=== PATIENT | male | born 1930 | race Hispanic/Latino ===

== ENCOUNTER 2016-09-12 07:21 | Day surgery (SDC) | payer MEDICARE, BC ==
[2016-09-11 14:47] VITALS: BMI 31.8
[2016-09-12 08:03] LABS: ADD MANUAL DIFF? NO
[2016-09-12 08:09] LABS: BASO # 0.04 K/mm3 (0.0-2.0); BASO % 0.5 % (0.0-3.0); EOS # 0.2 (0.0-0.7); EOS % 2.4 % (1.5-5.0); GRAN # 5.16 (1.4-6.5); GRAN % 68.3 % (50.0-68.0); HEMATOCRIT 44.8 % (42.0-52.0); LYMPH # 1.7 (1.2-3.4); LYMPH % 22.1 % (22.0-35.0); MEAN CELL VOLUME 94.1 fL (80.0-105.0); MEAN CORPUSCULAR HEMOGLOBIN 33.4 pg (25.0-35.0); MEAN CORPUSCULAR HGB CONC 35.5 g/dl (31.0-37.0); MEAN PLATELET VOLUME 10.4 fl (7.0-11.0); MONO # 0.5 (0.1-0.6); MONO % 6.7 % (1.0-6.0); PLATELET COUNT 260 10^3/uL (120.0-450.0); WHITE BLOOD COUNT 7.6 10^3/ul (4.5-11.0)
[2016-09-12 08:17] LABS: INR 0.98 (0.93-1.08)
[2016-09-12 08:21] LABS: BLOOD UREA NITROGEN 15 mg/dL (7-21); CALCIUM 8.7 mg/dL (8.4-10.5); CARBON DIOXIDE 27 mmol/L (21-33); CHLORIDE 104 mmol/L (98-107); CHOLESTEROL 113 mg/dL (130-200); GFR AFRICAN-AMERICAN > 60; GLUCOSE,RANDOM 104 mg/dL (70-110); POTASSIUM 4.1 mmol/L (3.6-5.0); SODIUM 140 mmol/L (132-148)
[2016-09-12] MEDS ORDERED: Lidocaine 2% Inj (20ml) ONE (09:26)
[2016-09-12] MEDS ORDERED: Midazolam 2 MG/2 ML VIAL ONE (10:44)
[2016-09-12 11:59] VITALS: TEMP 97.7
[2016-09-12] MEDS ORDERED: Sodium Chloride 0.9% 1,000 ML IV SCH (12:30)
[2016-09-12 13:22] VITALS: RESP 20
[2016-09-12 13:54] VITALS: O2SAT 96
[2016-09-12 14:56] VITALS: BP 139/75; PULSE 61
--- NOTE | 2016-09-12 14:59 | CARDCATH ---
PROCEDURE DATE: 09/12/2016 HISTORY: The patient is an 85-year-old male who presents with deterioration of LV function on stress test. The patient has a history of PTCA and stent, as well as mild aortic stenosis. A cardiac catheterization was recommended. PROCEDURE: Left heart catheterization with coronary angiography and left ventriculogram, as well as a supra-aortic valvular injection. The right femoral artery was cannulated with a 6-St [place]ian sheath. There were no complications. The findings on catheterization reveal a 5-mm peak to peak gradient across the aortic valve. Left ventriculogram revealed an ejection fraction between 50%-55%. Supra-aortic valvular injection revealed no aortic insufficiency. The ascending aorta was dilated. His coronary anatomy revealed a right dominant circulation. The RCA was visualized and found to have diffuse intimal irregularities with a patent stent. There w as a 50% stenosis in the mid portion. The left main artery was unremarkable. The proximal LAD revealed a patent stent. In the mid portion of the LAD, there is an eccentric 50%-6 0% stenoses noted with BRENDEN 3 flow. The circumflex artery revealed a patent stent in its proximal portion with no critical lesions. Angio-Seal was used to close the femoral artery site. The patient tolerated the procedure well. SUMMARY: In summary, the procedure revealed: 1. Preserved LV function. 2. Aortic sclerosis without aortic valve stenosis. 3. No AI on supra-aortic valvular injection. 4. Dilated ascending aorta. 5. Patent stents in the RCA, circumflex, and LAD. 4. A 50% stenosis in the mid RCA, as well as a 50%-60% stenosis in the mid LAD. Given these findings, the patient's left ventricular function is preserved. The stents are patent. The patient needs to continue with cardiac risk reduction program. Gerardo De La Cruz MD cc: [id number] TT: 09/12/2016 14:58:36 jn
--- NOTE | 2016-09-12 15:28 | CARD ---
APPROVED REPORT EKG Measurement Heart [id number] <Conclusion> Sinus bradycardia with 1st degree AV block Left bundle branch block Abnormal ECG
== END 2016-09-12 18:10 | disposition home or self-care (01) ==
LOC: SDSVAS 07:21
PROVIDERS: ATTEND Internal Medicine Cardiovascular Disease
DX: I25.10 Atherosclerotic heart disease of native coronary artery without angina pectoris (principal); I70.0 Atherosclerosis of aorta; I77.819 Aortic ectasia, unspecified site; I10 Essential (primary) hypertension; Z95.5 Presence of coronary angioplasty implant and graft
CPT/HCPCS: 36415; 80048; 80061; 85025; 85610; 85730; 86850; 86900; 93005; 93458; 93567; 99152; 99153; C1760; C1769 ×3; C2629; J1644; J2250; J3010; J7040 ×2; Q9967

== ENCOUNTER 2016-10-24 00:49 | Observation (INO) | payer MEDICARE, BC ==
--- NOTE | 2016-10-24 01:06 | EDPD ---
HPI Stroke - General Time Seen by Provider: 10/24/16 00:53 Chief Complaint: Weakness/Neurological Deficit Historian: Patient - History of Present Illness Narrative History of Present Illness (Free Text): 10/24/16 01:05 Nabil Gerardo is an 85 year old male, whose past medical history includes hypertension, hyperlipidemia, arthritis, and [place] s/p PTCA with stents, who presents to the Emergency department complaining of left-sided arm weakness. Patient states he had a sharp left-sided headache for about 30 seconds while at home tonight and then began experiencing left sided facial numbness with left arm weakness and unsteady gait. Patient states symptoms improved on arrival to Emergency department. Patient reports he took Aspirin and Effient prior to arrival. Patient denies any fever, chills, chest pain, shortness of breath, nausea, vomiting, diarrhea, back pain, neck pain, or any other complaints. PMD: Dr. Terry Edmonds Electrical Systems Engineer: Dr. Zeeshan De La Cruz Date:: 10/24/16 Time: 01:05 Timing: Currently Symptomatic Context: Home Associated Symptoms: Headache, Numbness Exacerbated by: Nothing Relieved by: Nothing - Location Locate Left: Upper extremity rTPA Inclusion/Exclusion - Refusal of Treatment Patient Refused Treatment: No - Inclusion Criteria for Altepase Patient is 18 years or Older: Yes The Clinical Diagnosis of Ischemic Stroke That is Causing a Potentially Disabling Neurological Deficit: No Time of Onset is Well Established to be Less Than 270 Minute Before Treatment Would Begin: Yes Risk/Benefit Discussed With Patient/Family Member Present: Yes - Exclusion Criteria for Altepase Uncontrolled Hypertension at Time of Treatment (Systolic BP above 185 or Diastolic BP above 110 mmHg): No Active Internal Bleeding: No Known Bleeding Diathesis Including but Not Limited to: Platelets Below 100,000/ mm,PTT Above 40 sec After Heparin Use, Current Use of Oral Anitcoagulant With INR Greater Than 1.7 or PT Greater Than 15 secs: No Evidence of an Intracranial Hemorrhage: No Evidence of Major Acute Infarct With Signs Greater Than 1/3 MCA Territory: No Suspicion of Subarachnoid Hemorrhage on Pretreatment Evaluation Even if CT Head Negative For Hemorrhage: No - Warning to TPA With Conditions Following Conditions Weighed Against Anticipated Benefit: Yes Condition: Rapid Improvement Additional Condition (For 3-4.5 Hour Window): Age Greater Than 80 Past Medical History - Provider Review Nursing Documentation Reviewed: Yes - Cardiac Hx Pacemaker: No - Neurological Hx Paralysis: No - Hematological/Oncological Hx Blood Transfusions: No Hx Blood Transfusion Reaction: No - Musculoskeletal/Rheumatological Hx Musculoskeletal Disorders: Yes - Psychiatric Hx Emotional Abuse: No Hx Physical Abuse: No Hx Substance Use: No - Anesthesia Hx Anesthesia Reactions: No Hx Malignant Hyperthermia: No - Suicidal Assessment Feels Threatened In Home Enviroment: No Family/Social History - Family/Social History Family History: Non-Contributory - DrPapito Review Nursing documentation reviewed.: Yes Allergies/Home Meds Allergies/Adverse Reactions: Allergies No Known Allergies Allergy (Verified 09/11/16 14:47) Home Medications: Home Meds Medication Instructions Recorded Confirmed Rosuvastatin Calcium [Crestor] 10 mg PO QPM 07/16/13 10/24/16 [id number] CD [Cardizem CD] 180 mg PO QPM 07/16/13 10/24/16 Metoprolol Succinate 25 mg PO QAM 09/03/16 10/24/16 Aspirin [Low Dose Aspirin EC] 81 mg PO QAM 09/11/16 10/24/16 Whick-3 Fatty Acids [Fish Oil] 100 mg PO DAILY 09/11/16 10/24/16 Review of Systems - Physician Review All systems were reviewed & negative as marked: Yes - Review of Systems Constitutional: Normal. absent: Fevers Eyes: Normal ENT: Normal Respiratory: Normal. absent: SOB, Cough Cardiovascular: Normal. absent: Chest Pain Gastrointestinal: Normal. absent: Abdominal Pain, Diarrhea, Vomiting Genitourinary Male: Normal. absent: Dysuria, Frequency, Hematuria, Urinary Output Changes Musculoskeletal: Normal. absent: Back Pain, Neck Pain Skin: Normal. absent: Rash Neurological: Headache, Other (+left facial numbness, +left-sided arm weakness) Endocrine: Normal Hemo/Lymphatic: Normal Psychiatric: Normal ED Stroke Physical Exam Vital Signs Reviewed: Yes Temperature: Afebrile Blood Pressure: Normal Pulse: Regular Respiratory Rate: Normal Appearance: Positive for: Well-Appearing, Non-Toxic, Comfortable Pain Distress: None Mental Status: Positive for: Alert and Oriented X 3 - Systems Exam Head: Present: Atraumatic, Normocephalic Pupils: Present: PERRL Extroacular Muscles: Present: EOMI Conjunctiva: Present: Normal Ears: Present: Normal, NORMAL TM, Normal Canal. No: Erythema, TM Bulging, Fluid , TM Perf Mouth: Present: Moist Mucous Membranes Pharnyx: Present: Normal. No: ERYTHEMA, EXUDATE, TONSILS ENLARGED, Peritonsilar Swelling, Uvular Deviation, Muffled/Hoarse Voice, Strider, Soft Palate/Uvular Edema Nose (External): Present: Atraumatic Nose (Internal): Present: Normal Inspection Neck: Present: Normal Range of Motion. No: Meningeal Signs, MIDLINE TENDERNESS , Paraspinal Tenderness Respiratory/Chest: Present: Clear to Auscultation, Good Air Exchange. No: Respiratory Distress, Accessory Muscle Use Cardiovascular: Present: Regular Rate and Rhythm, Normal S1, S2. No: Murmurs Abdomen: Present: Normal Bowel Sounds. No: Tenderness, Distention, Peritoneal Signs Back: Present: Normal Inspection. No: CVA Tenderness, Midline Tenderness, Paraspinal Tenderness Upper Extremity: Present: Normal Inspection. No: Cyanosis, Edema Lower Extremity: Present: Normal Inspection. No: Edema Neurologic: Present: GCS=15, CN II-XII Intact, Speech Normal, Motor Func Grossly Intact, Normal Sensory Function, Normal Cerebellar Funct, Memory Normal. No: Pronator Drift, Facial Droop Skin: Present: Warm, Dry, Normal Color. No: Rashes Lymphatic: Present: OX3, NI, NC Psychiatric: Present: Alert, Oriented x 3, Normal Insight, Normal Concentration Medical Decision Making ED Course and Treatment: 10/24/16 01:05 Impression: 85 year old male complaining of left-sided headache, left-sided facial numbness , left arm weakness, and unsteady gait. Differential Diagnosis include but are not limited to: TIA vs. CVA Plan: -- CT Head w/o contrast -- EKG -- Chest X-ray -- Labs, troponin, lipid panel, blood type and screen -- Reassess and disposition Prior Visits: Notes and results from previous visits were reviewed. Progress Notes: Reviewed EKG, NSR at 68 bpm. 1st degree AV block. LBBB. 10/24/16 01:30 Reviewed radiology, Chest X-ray shows no active disease. CT Head shows: Mild chronic microvascular changes without acute intracranial finding. 10/24/16 02:[address] Jefry Woods, who is aware and agrees with plan. *Pt is not a candidate for tPA due to resolution of symptoms.* 10/24/16 02:59 Pt will go to Telemetry observation for TIA under Dr. Edmonds' service. 10/24/16 06:[address] Pressley, covering for Dr. Edmonds, who is aware and agrees with plan. anesthesia resident notified. - Lab Interpretations I have reviewed the lab results: Yes - RAD Interpretation Narrative RAD Interpretations (Text): Chest X-ray shows no active disease. CT Head shows: Scattered foci of low attenuation within the periventricular and subcortical white matter are most compatible with chronic microvascular disease. The ventricles and sulci are symmetric without midline shift or mass effect. There is no intracranial hemorrhage, extraaxial collection, or acute transcortical infarction. No lesion of the skull base or calvarium is identified. The visualized paranasal sinuses, mastoid air cells, and orbits are normal. IMPRESSION: Mild chronic microvascular changes without acute intracranial finding. Crab Fisher: ED Physician, Radiologist - EKG Interpretation Interpreted by ED Physician: Yes Type: 12 lead EKG - Scribe Statement The provider has reviewed the documentation as recorded by the Scribe Karen Owusu All medical record entries made by the Scribe were at my direction and personally dictated by me. I have reviewed the chart and agree that the record accurately reflects my personal performance of the history, physical exam, medical decision making, and the department course for this patient. I have also personally directed, reviewed, and agree with the discharge instructions and disposition. NIHSS Scale ([place]) Time Performed: 01:05 - How Severe is the Stoke Baseline Level of Consciousness: 0=Alert LOC to Questions: 0=Both comments correct LOC to commands: 0=Obeys both correctly Best Gaze: 0=Normal Visual: 0=No visual loss Facial: 0=Normal Motor Arm - Left: 0=No drift Motor Arm - Right: 0=No drift Motor Leg - Left: 0=No drift Motor Leg - Right: 0=No drift Limb Ataxia: 0=Absent Sensory: 0=Normal Best Language: 0=No aphasia Dysarthia: 0=Normal articulation Extinction & Inattention (Neglect): 0=Normal, no object Score: 0 Risk Level: No Stroke Risk Disposition/Present on Arrival - Present on Arrival Any Indicators Present on Arrival: No History of DVT/PE: No History of Uncontrolled Diabetes: No Urinary Catheter: No History of Decub. Ulcer: No History Surgical Site Infection Following: None - Disposition Have Diagnosis and Disposition been Completed?: Yes Diagnosis: Transient ischemic attack Disposition: HOSPITALIZED Disposition Time: 03:00 Patient Plan: Observation Patient Problems: Current Active Problems Problem Status Onset Transient ischemic attack Acute Condition: GOOD
[2016-10-24 01:21] VITALS: BMI 32.8
[2016-10-24 03:18] LABS: ADD MANUAL DIFF? NO
[2016-10-24 03:37] LABS: ALB/GLOB RATIO 1.4 (1.1-1.8); ALKALINE PHOSPHATASE 71 U/L (38-133); ALT/SGPT 33 U/L (7-56); AST/SGOT 23 U/L (15-59); BILIRUBIN,TOTAL 0.8 mg/dL (0.2-1.3); BLOOD UREA NITROGEN 14 mg/dL (7-21); CALCIUM 8.9 mg/dL (8.4-10.5); CARBON DIOXIDE 26 mmol/L (21-33); CHLORIDE 103 mmol/L (95-110); CHOLESTEROL 119 mg/dL (130-200); GFR AFRICAN-AMERICAN > 60; GLUCOSE,RANDOM 122 mg/dL (70-110); SODIUM 137 mmol/L (132-148); TOTAL PROTEIN 6.4 g/dL (5.8-8.3)
[2016-10-24 03:41] LABS: INR 0.94 (0.93-1.08); PARTIAL THROMBOPLASTIN TIME 30.1 Seconds (23.7-30.8)
[2016-10-24 03:43] LABS: TROPONIN I < 0.01 ng/mL
[2016-10-24 04:00] LABS: BASO # 0.03 K/mm3 (0.0-2.0); BASO % 0.4 % (0.0-3.0); EOS # 0.1 (0.0-0.7); EOS % 1.6 % (1.5-5.0); GRAN # 5.68 (1.4-6.5); GRAN % 73.9 % (50.0-68.0); HEMATOCRIT 43.7 % (42.0-52.0); LYMPH # 1.5 (1.2-3.4); LYMPH % 19.5 % (22.0-35.0); MEAN CELL VOLUME 93.4 fL (80.0-105.0); MEAN CORPUSCULAR HEMOGLOBIN 32.9 pg (25.0-35.0); MEAN CORPUSCULAR HGB CONC 35.2 g/dl (31.0-37.0); MEAN PLATELET VOLUME 10.4 fl (7.0-11.0); MONO # 0.4 (0.1-0.6); MONO % 4.6 % (1.0-6.0); PLATELET COUNT 244 10^3/uL (120.0-450.0); RED CELL DISTRIBUTION WIDTH 13.2 % (11.5-14.5); WHITE BLOOD COUNT 7.7 10^3/ul (4.5-11.0)
--- NOTE | 2016-10-24 07:07 | CP.PCM.HP ---
<Nancy Munoz - Last Filed: 10/24/16 22:52> History of Present Illness - History of Present Illness History of Present Illness: CC: I felt numb in the left side. Patient is an 85 y/o with PMH of htn, [place] s/p PTCA with 3 stents presenting with left facial droop and left upper extremities numbness and weakness. Patient states the symptom started last night while he was standing. Patient reports he decided to take 2 baby aspirins and his Lopressor, and few minutes later the symptoms resolved. Patient denies falling, or hitting his head. Patient denies cp, sob, n/v/d. Patient denies filling dizzy prior to the symptoms. States all day yesterday, he was fine prior to this. Patient had his stress test in August, and reports he was told it was normal. Patient's right sided eye with mild erythema, reports he has blocked lacrimal gland duct, and has been seeing human resources file clerk Dr Bills biweekly. PMH: As stated above PSH: cardiac stents, lap adis Social: former tobacco smoker, quit 40 years ago, denies alcohol and illicit drug use. Lives with , walks unassisted, retired [employer]. Present on Admission - Present on Admission Any Indicators Present on Admission: No History of DVT/PE: No History of Uncontrolled Diabetes: No Urinary Catheter: No Decubitus Ulcer Present: No Review of Systems - Constitutional Constitutional: As Per HPI - EENT Eyes: Discharge (left eye with discharge, muscle atrophy.) - Cardiovascular Cardiovascular: Pedal Edema. absent: Chest Pain, Chest Pain at Rest, Chest Pain with Activity, Claudication, Diaphoresis, Dyspnea, Irregular Heart Rhythm, Orthopnea, Palpitations, Paroxysmal Nocturnal Dyspnea, Syncope - Respiratory Respiratory: absent: Cough, Dyspnea, Dyspnea on Exertion, Chest Congestion - Gastrointestinal Gastrointestinal: absent: Abdominal Pain, Bloating, Constipation, Cramping, Diarrhea, Dysphagia, Nausea, Vomiting - Genitourinary Genitourinary: absent: Urinary Frequency, Urinary Hesitance, Urinary Urgency - Musculoskeletal Musculoskeletal: absent: Abnormal Gait, Back Pain, Limited Range of Motion, Myalgias, Numbness, Radiating Pain into Limb - Integumentary Integumentary: Dry Skin, Rash - Neurological Neurological: absent: Abnormal Gait, Abnormal Hearing, Abnormal Speech, Confusion, Dizziness, Numbness, Focal Weakness, Frequent Falls, Headaches, Lack of Coordination, Loss of Vision, Memory Loss, Radicular Pain, Restless Legs, Sensory Deficit, Syncope, Tingling, Tremor, Vertigo, Weakness, Other Visual Disturbances - Psychiatric Psychiatric: absent: Anxiety, Confusion, Depression, Hallucinations, Memory Loss - Endocrine Endocrine: absent: Fatigue, Palpitations Past Patient History - Tetanus Immunizations Tetanus Immunization: Unknown - Past Medical History & Family History Past Medical History?: Yes - Past Social History Smoking Status: Former Smoker Alcohol: None Drugs: Denies Home Situation {Lives}: With Family - CARDIAC Hx Pacemaker: No - NEUROLOGICAL Hx Paralysis: No - HEMATOLOGICAL/ONCOLOGICAL Hx Blood Transfusions: No Hx Blood Transfusion Reaction: No - MUSCULOSKELETAL/RHEUMATOLOGICAL Hx Musculoskeletal Disorders: Yes - PSYCHIATRIC Hx Emotional Abuse: No Hx Physical Abuse: No Hx Substance Use: No - SURGICAL HISTORY Hx Surgeries: Yes - ANESTHESIA Hx Anesthesia Reactions: No Hx Malignant Hyperthermia: No Meds Allergies/Adverse Reactions: Allergies Allergy/AdvReac Type Severity Reaction Status Date / Time No Known Allergies Allergy Verified 10/24/16 11:58 Physical Exam - Constitutional Appears: No Acute Distress - Head Exam Head Exam: ATRAUMATIC, NORMAL INSPECTION, NORMOCEPHALIC - Eye Exam Eye Exam: EOMI, PERRL. absent: Normal appearance (right eye with mild conjunctiva erythema, and discharge.), Scleral icterus Pupil Exam: NORMAL ACCOMODATION - ENT Exam ENT Exam: absent: Mucous Membranes Dry - Neck Exam Neck exam: Positive for: Normal Inspection - Respiratory Exam Respiratory Exam: Clear to Auscultation Bilateral, NORMAL BREATHING PATTERN. absent: Chest Wall Tenderness, Prolonged Expiratory Phase, Rales, Rhonchi, Wheezes, Respiratory Distress, Stridor - Cardiovascular Exam Cardiovascular Exam: Tachycardia, REGULAR RHYTHM, +S1, +S2. absent: Irregular Rhythm - GI/Abdominal Exam GI & Abdominal Exam: Normal Bowel Sounds, Soft. absent: Diminished Bowel Sounds , Distended, Firm, Guarding, Rebound, Rigid, Tenderness - Extremities Exam Extremities exam: Positive for: pedal edema (+2), pedal pulses present. Negative for: calf tenderness, tenderness - Back Exam Back exam: rash noted. absent: vertebral tenderness - Neurological Exam Neurological exam: Alert, CN II-XII Intact, Oriented x3, Reflexes Normal Additional comments: Negative babinski, + 2 patella reflexes b/l, no facial asymmetry, tongue midline , 5/5 ROM and motor strength in b/l upper and lower extremities. - Psychiatric Exam Psychiatric exam: Normal Affect, Normal Mood - Skin Skin Exam: Dry, Intact, Normal Color, Rash (multiple freckles. ), Warm Results - Vital Signs Recent Vital Signs: Last Vital Signs Temp 97.9 F 10/24/16 01:05 Pulse 61 10/24/16 06:38 Resp 15 10/24/16 06:38 BP 141/62 10/24/16 06:38 Pulse Ox 97 10/24/16 06:38 - Labs Result Diagrams: 10/24/16 03:12 10/24/16 03:12 Labs: Laboratory Results - last 24 hr 10/24/16 10/24/16 10/24/16 03:12 03:12 03:12 WBC 7.7 RBC 4.68 Hgb 15.4 Hct 43.7 MCV 93.4 MCH 32.9 MCHC 35.2 RDW 13.2 Plt Count 244 MPV 10.4 Gran % 73.9 H Lymph % (Auto) 19.5 L Davidson % (Auto) 4.6 Eos % (Auto) 1.6 Baso % (Auto) 0.4 Gran # 5.68 Lymph # 1.5 Davidson # 0.4 Eos # 0.1 Baso # 0.03 PT 10.2 INR 0.94 APTT 30.1 Sodium 137 Potassium 4.0 Chloride 103 Carbon Dioxide 26 Anion Gap 12 BUN 14 Creatinine 0.8 Est GFR ( Amer) > 60 Est GFR (Non-Af Amer) > 60 Random Glucose 122 H Calcium 8.9 Total Bilirubin 0.8 AST 23 ALT 33 Alkaline Phosphatase 71 Troponin I < 0.01 Total Protein 6.4 Albumin 3.8 Globulin 2.6 Albumin/Globulin Ratio 1.4 Triglycerides 106 Cholesterol 119 L LDL Cholesterol Direct 59 HDL Cholesterol 39 - EKG Data EKG Interpreted by: Myself (1st degree av block, LBBB, QTC prolongation) Assessment & Plan - Assessment and Plan (Free Text) Assessment: Patient is an 85 y/o with PMH of htn, [place] s/p PTCA with 3 stents presenting with left upper face and left upper extremities numbness and weakness, which resolved spontaneously. Plan: 1) Numbness and Tingling 2nd to TIA. - Less likely CVA due to sudden resolution of symptoms. - will obtain tsh, lipid, and hgba1c - will obtain carotid us and MRI of brain - CT head with no acute ischemic changes. - s/p asa and lipitor in the ed. - neuro and cardio consults 2) htn- will resume losartan and lopressor 3) CAD with stents- continue management as mentioned above. 4) DVT and gi prophylaxis- pepcid and heparin sc. Patient seen, examined, case discussed with Dr Edmonds. - Date & Time Date: 10/24/16 Time: 09:15 <Darian Pressley - Last Filed: 10/26/16 16:33> Results - Vital Signs Recent Vital Signs: Last Vital Signs Temp 98.2 F 10/25/16 06:00 Pulse 72 10/25/16 10:00 Resp 20 10/25/16 06:00 BP 140/65 10/25/16 09:31 Pulse Ox 97 10/25/16 06:00 - Labs Result Diagrams: 10/25/16 06:30 10/25/16 06:30 Attending/Attestation - Attestation I have personally seen and examined this patient.: Yes I have fully participated in the care of the patient.: Yes I have reviewed all pertinent clinical information: Yes Notes (Text): 10/26/16 16:33 Medical record note made by the resident after discussion with my direction and input after the patient was personally seen and examined by me. I have reviewed the chart and agree that the record accurately reflects by personal performance of the history, physical exam, data review, and medical decision-making, in the course for the patient. I have also personally directed the plan of care.
--- NOTE | 2016-10-24 07:15 | CT ---
PROCEDURE: CT HEAD WITHOUT CONTRAST. HISTORY: Code Stroke COMPARISON: None available. TECHNIQUE: Axial computed tomography images were obtained through the head/brain without intravenous contrast. Radiation dose: Total exam DLP = 789 mGy-cm. This CT exam was performed using one or more of the following dose reduction techniques: Automated exposure control, adjustment of the mA and/or kV according to patient size, and/or use of iterative reconstruction technique. FINDINGS: HEMORRHAGE: No intracranial hemorrhage. BRAIN: No mass effect or edema. Mild microvascular ischemic disease. VENTRICLES: Unremarkable. No hydrocephalus. CALVARIUM: Unremarkable. PARANASAL SINUSES: Unremarkable as visualized. No significant inflammatory changes. MASTOID AIR CELLS: Unremarkable as visualized. No inflammatory changes. OTHER FINDINGS: None. IMPRESSION: No intracranial hemorrhage.
--- NOTE | 2016-10-24 08:38 | RAD ---
HISTORY: cva COMPARISON: 10/13/2012 FINDINGS: LUNGS: The lungs are clear. PLEURA: No significant pleural effusion identified, no pneumothorax apparent. CARDIOVASCULAR: The heart is normal in size. Atherosclerotic aortic arch calcifications are present. . OSSEOUS STRUCTURES: No significant abnormalities. VISUALIZED UPPER ABDOMEN: Normal. OTHER FINDINGS: None. IMPRESSION: No active pulmonary disease.
[2016-10-24] MEDS ORDERED: Metoprolol Succinate 50 mg XL Tab PO SCH (10:00)
[2016-10-24] MEDS ORDERED: Pneumococcal 23-Valent Vaccine IM ONE (15:15)
--- NOTE | 2016-10-24 15:36 | MRI ---
PROCEDURE: MRI BRAIN WITHOUT CONTRAST HISTORY: TIA COMPARISON: Noncontrast head CT performed earlier the same day TECHNIQUE: Multiplanar, multisequence MR images of the brain were obtained without intravenous contrast enhancement. FINDINGS: HEMORRHAGE: None DWI: No evidence of an acute or early subacute infarction. BRAIN PARENCHYMA: There is no mass, mass effect or abnormal extra-axial fluid collection. There is no territorial infarction. The midline sagittal structures are normal. VENTRICLES: There is mild age-related global parenchymal volume loss and proportionate enlargement of the ventricles and cortical sulci. CRANIUM: There is normal bone marrow signal pattern. ORBITS: Grossly unremarkable. PARANASAL SINUSES/MASTOIDS: Predominantly clear. VASCULAR SYSTEM: There are normal signal voids in the larger intracranial arteries. OTHER FINDINGS: None. IMPRESSION: No acute intracranial abnormality. Specifically, no evidence of acute infarction. Mild age-related global parenchymal volume loss.
--- NOTE | 2016-10-24 16:22 | CARD ---
APPROVED REPORT EKG Measurement Heart [id number] <Conclusion> Sinus rhythm with 1st degree AV block Left bundle branch block Abnormal ECG
[2016-10-24] MEDS ORDERED: diltiaZEM 180 mg/24 Hours CD Cap PO SCH (18:00)
--- NOTE | 2016-10-24 18:58 | CON ---
DATE: 10/24/2016 HISTORY OF PRESENT ILLNESS: This is an 85-year-old white male with past medical history of hypertens ion, hyperlipidemia, arthritis, who came to the Emergency Room with left-sided weakness. The patient also had a left-sided headache for a few seconds and was experiencing left facial numbness and left arm weakness and unsteady gait. He came to the Emergency Room. MRI of the head was done, which was reported negative. Denies any fever, nausea or vomiting, chest pain, shortness of breath. Called to evaluate the patient. PAST MEDICAL HISTORY: As above. HOME MEDICATIONS: Crestor, diltiazem, metoprolol, aspirin. REVIEW OF SYSTEMS: A 10-point review of system was negative except as noted above. SOCIAL HISTORY: Does not smoke, does not drink. PHYSICAL EXAMINATION: HEENT: Normocephalic, atraumatic. NECK: Supple. NEUROLOGIC: Alert, awake, oriented x 3. No aphasia. Cranial nerves II through XII were tested. Pu pils reactive. EOM intact. Visual casanova full. No facial asymmetry. Tongue midline. Motor examin ation: Spontaneous movement of the extremities noted. Deep tendon reflexes 1+. Both plantars are d owngoing. Sensory appears intact. Cerebellar gait deferred. IMPRESSION: Possibly transient ischemic attack and MRI of the head was negative. PLAN: Continue present management. Workup in progress. We will follow up. Surinder Woods MD cc: [id number] TT: 10/24/2016 18:57:33 Confirmation # [id number] Dictation # [id number]
--- NOTE | 2016-10-24 19:39 | US ---
PROCEDURE: Bilateral carotid artery duplex ultrasound HISTORY: Carotid stenosis TIA PHYSICIAN(S): Gerardo Phan MD. TECHNIQUE: Duplex sonography and color-flow Doppler were used to evaluate the carotid bifurcations and limited segments of the vertebral arteries bilaterally. FINDINGS: There is mild smooth heterogeneous plaque noted at the carotid bifurcations bilaterally. The peak systolic velocity in the proximal right internal carotid artery is 78 cm/sec. This corresponds to a 20 to 39% proximal right ICA stenosis. Normal systolic velocities are noted in the proximal right external carotid artery. There is antegrade flow in the right vertebral artery. The peak systolic velocity in the proximal left internal carotid artery is 102 cm/sec. This corresponds to a 20 to 39% proximal left ICA stenosis. Normal systolic velocities are noted in the proximal left external carotid artery. There is blunted antegrade flow in the small left vertebral artery. IMPRESSION: 1. Bilateral 20-39% proximal ICA stenoses. 2. Antegrade flow in both vertebral arteries.
[2016-10-25 06:17] VITALS: RESP 20; TEMP 98.2; O2SAT 97
[2016-10-25] MEDS ORDERED: Pantoprazole 40 mg EC Tab PO SCH (06:30)
[2016-10-25 06:48] LABS: ADD MANUAL DIFF? NO
[2016-10-25 07:19] LABS: BASO # 0.04 K/mm3 (0.0-2.0); BASO % 0.5 % (0.0-3.0); EOS # 0.2 (0.0-0.7); EOS % 3.2 % (1.5-5.0); GRAN # 4.65 (1.4-6.5); HEMATOCRIT 45.5 % (42.0-52.0); LYMPH # 2.1 (1.2-3.4); LYMPH % 28.4 % (22.0-35.0); MEAN CORPUSCULAR HEMOGLOBIN 32.4 pg (25.0-35.0); MEAN CORPUSCULAR HGB CONC 34.5 g/dl (31.0-37.0); MEAN PLATELET VOLUME 10.8 fl (7.0-11.0); MONO # 0.4 (0.1-0.6); MONO % 4.9 % (1.0-6.0); PLATELET COUNT 276 10^3/uL (120.0-450.0); RED CELL DISTRIBUTION WIDTH 13.3 % (11.5-14.5); WHITE BLOOD COUNT 7.4 10^3/ul (4.5-11.0)
[2016-10-25 07:22] LABS: BLOOD UREA NITROGEN 13 mg/dL (7-21); CARBON DIOXIDE 25 mmol/L (21-33); CHLORIDE 105 mmol/L (98-107); GFR AFRICAN-AMERICAN > 60; GLUCOSE,RANDOM 102 mg/dL (70-110); POTASSIUM 3.9 mmol/L (3.6-5.0); SODIUM 140 mmol/L (132-148)
--- NOTE | 2016-10-25 08:12 | CP.PCM.DIS ---
<AlexanderNancy - Last Filed: 10/26/16 10:02> Provider - Provider Date of Admission: 10/24/16 02:59 Attending physician: Francisco Javier Edmonds MD Primary care physician: Francisco Javier Edmonds MD Consults: Neurology- Dr Jefry Woods. Cardio- Dr De La Cruz Time Spent in preparation of Discharge (in minutes): 45 Diagnosis - Discharge Diagnosis (1) Transient ischemic attack Status: Acute (2) H/O acute myocardial infarction Status: Chronic (3) H/O heart artery stent Status: Chronic (4) HTN (hypertension) Status: Chronic (5) Dyslipidemia Status: Chronic Hospital Course - Lab Results Lab Results: Most Recent Lab Values WBC 7.4 10^3/ul (4.5-11.0) 10/25/16 06:30 RBC 4.84 10^6/uL (3.5-6.1) 10/25/16 06:30 Hgb 15.7 gm/dL (14.0-18.0) 10/25/16 06:30 Hct 45.5 % (42.0-52.0) 10/25/16 06:30 MCV 94.0 fL (80.0-105.0) 10/25/16 06:30 MCH 32.4 pg (25.0-35.0) 10/25/16 06:30 MCHC 34.5 g/dl (31.0-37.0) 10/25/16 06:30 RDW 13.3 % (11.5-14.5) 10/25/16 06:30 Plt Count 276 10^3/uL (120.0-450.0) 10/25/16 06:30 MPV 10.8 fl (7.0-11.0) 10/25/16 06:30 Gran % 63.0 % (50.0-68.0) 10/25/16 06:30 Lymph % (Auto) 28.4 % (22.0-35.0) 10/25/16 06:30 [place] % (Auto) 4.9 % (1.0-6.0) 10/25/16 06:30 Eos % (Auto) 3.2 % (1.5-5.0) 10/25/16 06:30 Baso % (Auto) 0.5 % (0.0-3.0) 10/25/16 06:30 Gran # 4.65 (1.4-6.5) 10/25/16 06:30 Lymph # 2.1 (1.2-3.4) 10/25/16 06:30 [place] # 0.4 (0.1-0.6) 10/25/16 06:30 Eos # 0.2 (0.0-0.7) 10/25/16 06:30 Baso # 0.04 K/mm3 (0.0-2.0) 10/25/16 06:30 PT 10.2 Seconds (9.9-11.8) 10/24/16 03:12 INR 0.94 (0.93-1.08) 10/24/16 03:12 APTT 30.1 Seconds (23.7-30.8) 10/24/16 03:12 Sodium 140 mmol/L (132-148) 10/25/16 06:30 Potassium 3.9 mmol/L (3.6-5.0) 10/25/16 06:30 Chloride 105 mmol/L (98-107) 10/25/16 06:30 Carbon Dioxide 25 mmol/L (21-33) 10/25/16 06:30 Anion Gap 14 (10-20) 10/25/16 06:30 BUN 13 mg/dL (7-21) 10/25/16 06:30 Creatinine 0.7 mg/dL (0.5-1.4) 10/25/16 06:30 Est GFR ( Amer) > 60 10/25/16 06:30 Est GFR (Non-Af Amer) > 60 10/25/16 06:30 POC Glucose (mg/dL) 133 mg/dL (65-110) H 10/24/16 01:43 Random Glucose 102 mg/dL (70-110) 10/25/16 06:30 Hemoglobin A1c 5.7 % (4.2-6.5) 10/24/16 03:12 Calcium 9.0 mg/dL (8.4-10.5) 10/25/16 06:30 Total Bilirubin 0.8 mg/dL (0.2-1.3) 10/24/16 03:12 AST 23 U/L (15-59) 10/24/16 03:12 ALT 33 U/L (7-56) 10/24/16 03:12 Alkaline Phosphatase 71 U/L (38-133) 10/24/16 03:12 Troponin I < 0.01 ng/mL 10/24/16 03:12 Total Protein 6.4 g/dL (5.8-8.3) 10/24/16 03:12 Albumin 3.8 g/dL (3.0-4.8) 10/24/16 03:12 Globulin 2.6 gm/dL 10/24/16 03:12 Albumin/Globulin Ratio 1.4 (1.1-1.8) 10/24/16 03:12 Triglycerides 106 mg/dL (35-160) 10/24/16 03:12 Cholesterol 119 mg/dL (130-200) L 10/24/16 03:12 LDL Cholesterol Direct 59 mg/dL (0-129) 10/24/16 03:12 HDL Cholesterol 39 mg/dL (29-60) 10/24/16 03:12 Blood Type O POSITIVE 10/24/16 01:06 Antibody Screen Negative 10/24/16 01:06 BBK History Checked Patient has bt 10/24/16 01:06 - Hospital Course Hospital Course: Patient is an 85 y/o with PMH of htn, [place] s/p PTCA with 3 stents presenting with left upper face and left upper extremities numbness and weakness, which resolved spontaneously before arrival. Patient had taking 81 mg aspirin 2 tabs prior to presenting tot he ED. On the arrival, CT head revealed no acute ischemic changes. Basic labs were normal, including hgba1c. Patient had MRI of the brain which revealed no acute infarct, mild age related global parenchymal volume loss. EKG revealed LBBB, Sinus rhythm with 1st degree av block, LBBB ( chronic), and qtc prolongation. No arrhythmias on tele. Carotid u/s revealed 20 -39% proximal stenoses. Patient was evaluated by cardio, and agreed to restarting patient plavix. Patient to be discharged home with aspirin 81 mg and plavix 75 mg daily. - Date & Time of H&P Date of H&P: 10/24/16 Time of H&P: 07:06 Discharge Exam - Head Exam Head Exam: ATRAUMATIC, NORMAL INSPECTION, NORMOCEPHALIC - Eye Exam Eye Exam: EOMI, Normal appearance, PERRL. absent: Scleral icterus - ENT Exam ENT Exam: Mucous Membranes Moist - Neck Exam Neck exam: Normal Inspection - Respiratory Exam Respiratory Exam: Clear to PA & Lateral, NORMAL BREATHING PATTERN, UNREMARKABLE. absent: Rales, Rhonchi, Wheezes, Respiratory Distress, Stridor - Cardiovascular Exam Cardiovascular Exam: REGULAR RHYTHM, RRR, +S1, +S2. absent: Systolic Murmur - GI/Abdominal Exam GI & Abdominal Exam: Normal Bowel Sounds, Unremarkable. absent: Distended, Firm , Guarding, Mass, Organomegaly, Pulsatile Mass, Rebound, Rigid, Soft, Tenderness - Extremities Exam Extremities exam: pedal edema (+2) - Back Exam Back exam: NORMAL INSPECTION - Neurological Exam Neurological exam: Alert, CN II-XII Intact, Normal Gait, Oriented x3, Reflexes Normal - Psychiatric Exam Psychiatric exam: Normal Affect, Normal Mood - Skin Skin Exam: Dry, Intact, Normal Color, Rash, Warm Discharge Plan - Discharge Medications Prescriptions: Clopidogrel [Plavix] 75 mg PO DAILY #30 tab - Follow Up Plan Condition: GOOD Disposition: HOME/ ROUTINE Patient education suggested?: Yes Instructions: Transient Ischemic Attack (DC), Ischemic Stroke (DC), Stroke (DC) Additional Instructions: Please take both aspirin and plavix once a day. Follow up with Dr Edmonds in the office Follow up with Dr De La Cruz as scheduled. Go tot he neared emergency room if you experience headache ( worst headache of your life), dizziness, fall, numbness and weakness, chest pain or shortness of breath. Referrals: Francisco Javier Edmonds MD [Primary Care Provider] - Gerardo De La Cruz MD [Staff Provider] - <Francisco Javier Edmonds - Last Filed: 11/20/16 08:32> Provider - Provider Date of Admission: 10/24/16 02:59 Attending physician: Francisco Javier Edmonds MD Primary care physician: Francisco Javier Edmonds MD Hospital Course - Lab Results Lab Results: Most Recent Lab Values WBC 7.4 10^3/ul (4.5-11.0) 10/25/16 06:30 RBC 4.84 10^6/uL (3.5-6.1) 10/25/16 06:30 Hgb 15.7 gm/dL (14.0-18.0) 10/25/16 06:30 Hct 45.5 % (42.0-52.0) 10/25/16 06:30 MCV 94.0 fL (80.0-105.0) 10/25/16 06:30 MCH 32.4 pg (25.0-35.0) 10/25/16 06:30 MCHC 34.5 g/dl (31.0-37.0) 10/25/16 06:30 RDW 13.3 % (11.5-14.5) 10/25/16 06:30 Plt Count 276 10^3/uL (120.0-450.0) 10/25/16 06:30 MPV 10.8 fl (7.0-11.0) 10/25/16 06:30 Gran % 63.0 % (50.0-68.0) 10/25/16 06:30 Lymph % (Auto) 28.4 % (22.0-35.0) 10/25/16 06:30 [place] % (Auto) 4.9 % (1.0-6.0) 10/25/16 06:30 Eos % (Auto) 3.2 % (1.5-5.0) 10/25/16 06:30 Baso % (Auto) 0.5 % (0.0-3.0) 10/25/16 06:30 Gran # 4.65 (1.4-6.5) 10/25/16 06:30 Lymph # 2.1 (1.2-3.4) 10/25/16 06:30 [place] # 0.4 (0.1-0.6) 10/25/16 06:30 Eos # 0.2 (0.0-0.7) 10/25/16 06:30 Baso # 0.04 K/mm3 (0.0-2.0) 10/25/16 06:30 PT 10.2 Seconds (9.9-11.8) 10/24/16 03:12 INR 0.94 (0.93-1.08) 10/24/16 03:12 APTT 30.1 Seconds (23.7-30.8) 10/24/16 03:12 Sodium 140 mmol/L (132-148) 10/25/16 06:30 Potassium 3.9 mmol/L (3.6-5.0) 10/25/16 06:30 Chloride 105 mmol/L (98-107) 10/25/16 06:30 Carbon Dioxide 25 mmol/L (21-33) 10/25/16 06:30 Anion Gap 14 (10-20) 10/25/16 06:30 BUN 13 mg/dL (7-21) 10/25/16 06:30 Creatinine 0.7 mg/dL (0.5-1.4) 10/25/16 06:30 Est GFR ( Amer) > 60 10/25/16 06:30 Est GFR (Non-Af Amer) > 60 10/25/16 06:30 POC Glucose (mg/dL) 133 mg/dL (65-110) H 10/24/16 01:43 Random Glucose 102 mg/dL (70-110) 10/25/16 06:30 Hemoglobin A1c 5.7 % (4.2-6.5) 10/24/16 03:12 Calcium 9.0 mg/dL (8.4-10.5) 10/25/16 06:30 Total Bilirubin 0.8 mg/dL (0.2-1.3) 10/24/16 03:12 AST 23 U/L (15-59) 10/24/16 03:12 ALT 33 U/L (7-56) 10/24/16 03:12 Alkaline Phosphatase 71 U/L (38-133) 10/24/16 03:12 Troponin I < 0.01 ng/mL 10/24/16 03:12 Total Protein 6.4 g/dL (5.8-8.3) 10/24/16 03:12 Albumin 3.8 g/dL (3.0-4.8) 10/24/16 03:12 Globulin 2.6 gm/dL 10/24/16 03:12 Albumin/Globulin Ratio 1.4 (1.1-1.8) 10/24/16 03:12 Triglycerides 106 mg/dL (35-160) 10/24/16 03:12 Cholesterol 119 mg/dL (130-200) L 10/24/16 03:12 LDL Cholesterol Direct 59 mg/dL (0-129) 10/24/16 03:12 HDL Cholesterol 39 mg/dL (29-60) 10/24/16 03:12 Blood Type O POSITIVE 10/24/16 01:06 Antibody Screen Negative 10/24/16 01:06 BBK History Checked Patient has bt 10/24/16 01:06 Attending/Attestation - Attestation I have personally seen and examined this patient.: Yes I have fully participated in the care of the patient.: Yes I have reviewed all pertinent clinical information, including history, physical exam and plan: Yes Notes (Text): 11/20/16 08:32 Medical record note made by resident after discussion with my direction and input after patient personally seen and examined by me. I have reviewed the chart and agree that the record accurately reflects my personal history, physical, data review and plan.
[2016-10-25 09:34] VITALS: BP 140/65
[2016-10-25] MEDS ORDERED: Metoprolol Succinate 50 mg XL Tab PO SCH (10:00)
[2016-10-25 11:09] VITALS: PULSE 72
--- NOTE | 2016-10-25 11:13 | CON ---
DATE: 10/25/2016 HISTORY OF PRESENT ILLNESS: The patient is an 85-year-old male who presents with transient facial we akness. PAST MEDICAL HISTORY: Notable for history of hypertension, coronary artery disease, status post PTCA and stent in the past. In addition, he suffers from hyperlipidemia. He denies chest pain, denies shortness of breath. His symptoms are completely resolved. The patient feels well. SOCIAL HISTORY: Does not smoke. He exercises 3 times a week. REVIEW OF SYSTEMS: A 14-point review of systems was reviewed in detail. No cardiac symptomatology i s noted. PHYSICAL EXAMINATION: VITAL SIGNS: Blood pressure is 140/65, heart rate in the 80s. NECK: Negative JVD. LUNGS: Without rales. HEART: Revealed S1, S2. EXTREMITIES: Without edema. LABORATORIES: Includes an EKG that shows normal sinus rhythm with a left bundle branch block. Hemoglobin is 15.7. Chemistries: The BUN and creatinine are unremarkable. Troponin is negative x 1 . IMPRESSION: 1. Probable transient ischemic attack. 2. No evidence for acute coronary syndrome. 3. Stable angina. 4. Coronary artery disease. 5. Diabetes mellitus. 6. Hypercholesterolemia. PLAN: Given these findings, I agree with adding Plavix to his regimen. His cardiac status is stable. Gerardo De La Cruz MD cc: [id number] TT: 10/25/2016 11:12:23 Confirmation # [id number] Dictation # [id number]
== END 2016-10-25 13:10 | disposition home or self-care (01) ==
LOC: ED 00:49 → ERH 02:59 → 2RNO 13:49
PROVIDERS: ADMIT Internal Medicine; ATTEND Internal Medicine
DX: R20.0 Anesthesia of skin (principal); R26.81 Unsteadiness on feet; R53.1 Weakness; I10 Essential (primary) hypertension; E78.5 Hyperlipidemia, unspecified; I44.0 Atrioventricular block, first degree; I44.7 Left bundle-branch block, unspecified; I25.118 Atherosclerotic heart disease of native coronary artery with other forms of angina pectoris; E11.9 Type 2 diabetes mellitus without complications; E78.00 Pure hypercholesterolemia, unspecified; M19.90 Unspecified osteoarthritis, unspecified site; I25.2 Old myocardial infarction; Z95.5 Presence of coronary angioplasty implant and graft; Z87.891 Personal history of nicotine dependence; Z79.82 Long term (current) use of aspirin
CPT/HCPCS: 36415; 70450; 70551; 71010; 80048; 80053; 80061; 82948; 83036; 84484; 85025; 85610; 85730; 86850; 86900; 93005; 93880; 97161; 99285; G0378; G8978; G8979; G8980; J1644